=== PATIENT | female | born 1950 | race Caucasian/White ===

== ENCOUNTER 2019-02-20 10:45 | Inpatient (IN) ==
[2019-02-20] MEDS ORDERED: ASPIRIN PO ONE (11:23)
--- NOTE | 2019-02-20 11:28 | EKG Report ---
Test Performed on : 02/20/2019 10:47:23 AM Test Reason : CHEST PAIN Blood Pressure : / mmHG Vent. Rate : 069 BPM Atrial Rate : 069 BPM P-R Int : 162 ms QRS Dur : 114 ms QT Int : 416 ms P-R-T Axes : 034 -11 029 degrees QTc Int : 445 ms Normal sinus rhythm. Anteroseptal infarct , age undetermined Abnormal ECG No previous ECGs available Unconfirmed Result
[2019-02-20 11:33] LABS: BASO# 0.03 X1000 (0.0-0.2); BASO% 0.3 % (0.0-0.8); EOS% 2.1 % (0.0-10.0); HEMATOCRIT 39.4 % (37.0-47.0); HEMOGLOBIN 13.3 g/dL (12.0-16.0); IMM GRAN# 0.03 X1000 (0.0-0.04); IMM GRAN% 0.3 % (0.0-0.5); LYMPH# 2.46 X1000 (1.2-3.4); LYMPH% 26.2 % (20.5-51.1); MCH 27.7 PG (27-31); MCHC 33.8 g/dL (33-37); MCV 82.1 FL (81-99); MONO# 0.76 X1000 (0.11-0.59); MONO% 8.1 % (1.7-9.3); MPV 11.3 FL (7.4-10.4); NEUT# 5.91 X1000 (1.4-6.5); PLT 282 X1000 (130-400); RDW 14.1 % (11.5-14.5); WBC 9.39 X1000 (4.8-10.8)
[2019-02-20 11:40] LABS: INR 0.96; PROTIME 12.8 Seconds (11.0-16.0); PTT 26.6 Seconds (22.3-41.8)
[2019-02-20 11:51] LABS: AGAP 14; ALB/GLOB RATIO 2.4; ALBUMIN 4.8 g/dL (3.5-5.0); ALKALINE PHOSPHATASE 84 U/L (32-104); BUN 21 mg/dL (8-22); CALCIUM 9.4 mg/dL (8.8-10.2); CHLORIDE 105 mmol/L (98-107); CK PROFILE 51 U/L (24-173); COSMO 288; CREATININE 0.8 mg/dL (0.5-0.9); ESTIMATED GFR > 60; GLUCOSE 100 mg/dL (70-104); GOT 18 U/L (10-30); GPT 17 U/L (10-36); POTASSIUM 4.1 mmol/L (3.5-5.1); SODIUM 143 mmol/L (136-145); TCO2 24 mmol/L (25-35); TOTAL BILIRUBIN 0.35 mg/dL (0.20-1.00); TOTAL PROTEIN 6.8 g/dL (6.3-8.3)
--- NOTE | 2019-02-20 11:59 | Diag Imaging Result Doc PS360 ---
EXAM: CHEST-2 VIEWS 02/20/2019 HISTORY: cp TECHNIQUE: PA and lateral chest COMMENT: There is no evidence of acute cardiac or pulmonary disease. There are no previous studies. IMPRESSION: No acute disease. Electronically signed by Onur Osuna 02/20/2019 11:57 AM
--- NOTE | 2019-02-20 16:30 | PROVIDER DOCUMENTATION ---
This chart was entered by Dang Albarran Scribe, acting as scribe for Alexys Gu MD. HPI-Chest Pain - General Chief Complaint: Chest Pain Stated Complaint: CP - HEART PATIENT Time Seen by Provider: 02/20/19 11:32 Source: patient Allergies/Adverse Reactions: Patient Allergies Allergy/AdvReac Type Severity Reaction Status Date / Time Sulfa (Sulfonamide Allergy SHORTNESS Verified 02/20/19 11:31 Antibiotics) OF BREATH Home Medications: Home Medication List Medication Instructions Recorded Confirmed Last Taken Type Aspirin [Ecotrin] 81 mg PO QAM 02/20/19 02/20/19 02/20/19 History Fenofibrate [Lofibra] 160 mg PO DAILY 02/20/19 02/20/19 02/20/19 History Gabapentin 100 mg PO QPM 02/20/19 02/20/19 1 Day Ago History ~02/19/19 Lisinopril 10 mg PO QAM 02/20/19 02/20/19 02/20/19 History Metoprolol [Lopressor] 25 mg PO QPM 02/20/19 02/20/19 1 Day Ago History ~02/19/19 Multivitamin/Iron/Folic Acid 1 ea PO QAM 02/20/19 02/20/19 02/20/19 History [Centrum Adults Tablet] [place]-3 Fatty Acids [Fish Oil] 500 mg PO QAM 02/20/19 02/20/19 02/20/19 History Omeprazole [Prilosec] 40 mg PO QAM 02/20/19 02/20/19 02/20/19 History PRAVAstatin [Pravachol] 80 mg PO QHS 02/20/19 02/20/19 1 Day Ago History ~02/19/19 Temazepam [Restoril] 30 mg PO QHS 02/20/19 02/20/19 1 Day Ago History ~02/19/19 - History of Present Illness-CP Nature of Presenting Problem: 69yof presents to ED cc chest pressure, palpitations,weakness, lightheaded and SOB for last 2 days. 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 Pt reports she has had palpitations for 2yrs and had a cardiac workup for that but is unsure of dx. Pt reports she has family hx of similar symptoms with [place]. Pt denies N/V/D, chills, fever or edema. Pt is nontoxic in appearance. Pt has hx of HTN and DM. Location: reports: central Chest Pain Radiation: reports: no radiation Quality of Pain: reports: pressure Severity in ED: mild, moderate Onset/Duration: 2 days ago Timing: still present, intermittent Context/Activities at Onset: reports: light activity Modifying Factors: improves with: nothing Associated Symptoms: reports: fatigue, shortness of breath, weakness Similar Symptoms Previously?: Yes Recently Seen Here or By Another Healthcare Provider: No Review of Systems - Adult - REVIEW OF SYSTEMS - ADULT Constitutional: reports: see HPI, fatique. denies: chills, fever Eyes: reports: no symptoms reported Ears, Nose, Mouth & Throat: reports: no symptoms reported Cardiovascular: reports: see HPI, chest pain, palpitations Respiratory: reports: see HPI, shortness of breath. denies: wheezing Gastrointestinal: reports: see HPI. denies: diarrhea, nausea, vomiting Genitourinary: reports: no symptoms reported Musculoskeletal: reports: no symptoms reported Integumentary: reports: no symptoms reported Neurological: reports: see HPI, dizziness/vertigo Psychiatric: reports: no symptoms reported Endocrine: reports: no symptoms reported Hematologic/Lymphatic: reports: no symptoms reported Allergic/Immunologic: reports: no symptoms reported All Other Systems: Reviewed and Negative Past History - Adult - PAST MEDICAL HISTORY-ADULT Review of Records: reports: Nursing Assessment Review, Medications Reviewed, Social history reviewed & non-contributory. Major Childhood Illnesses: reports: denies history Cardiovascular: reports: denies history Respiratory: reports: denies history Gastrointestinal: reports: denies history Obstetrical/Gynecological: reports: denies history Genitourinary: reports: denies history Musculoskeletal: reports: denies history Neurological: reports: denies history Endocrine/Immune: reports: denies history Other Conditions: reports: denies history - IMMUNIZATION STATUS Childhood Immunizations: See Nurse Assessment Flu Vaccine: See Nurse Assessment - FAMILY HISTORY Family History: reviewed, not pertinent - SOCIAL HISTORY Smoking: denies Physical Exam-General - PHYSICAL EXAM-ADULT Initial Vital Signs Reviewed: Yes - CONSTITUTIONAL General Appearance: appears well, alert, no apparent distress. negative: anxious, combative - EYES Eyes: PERRL/EOMI, pink conjunctivae. negative: photophobia - HEAD, EARS, NOSE, MOUTH & THROAT HENMT: normocephalic/atraumatic, moist mucous membranes. negative: angioedema - RESPIRATORY Respiratory: chest non-tender, lungs clear, normal breath sounds. negative: stridor, wheezing - CARDIOVASCULAR Cardiovascular: normal peripheral pulses, regular rate, rhythm, no edema. negative: bradycardia, tachycardia - GASTROINTESTINAL (ABDOMEN) Abdominal Exam: soft. negative: rebound, tenderness - MUSCULOSKELETAL Back Exam: normal inspection, no CVA tenderness, no vertebral tenderness Extremity: normal inspection, normal capillary refill. negative: deformity - SKIN Integumentary: normal color. negative: diaphoresis, ecchymosis - PSYCHIATRIC Psych/Mental Status: normal mood/affect, oriented x 3. negative: anxious, disheveled - HEART Score HEART Score: History: Slightly Suspicious HEART Score: ECG: Non-Specific Repolarization Disturbance/LBBB/PM HEART Score: Age: > or = 65 Years HEART Score: Risk Factors for Atherosclerotic Disease: 1 or 2 Risk Factors HEART Score: Troponin: < or = Normal Limit Total HEART Score:: 4 Progress - PLAN OF CARE/RESULTS Progress/Plan/Lab Results: Vital Signs - 8 hr 02/20/19 10:54 02/20/19 11:12 02/20/19 12:02 Temperature 98.3 F Pulse Rate 74 81 62 Respiratory Rate 18 18 15 Blood Pressure 137/84 157/84 143/66 O2 Sat by Pulse Oximetry 95 96 95 02/20/19 13:02 Temperature Pulse Rate 62 Respiratory Rate 15 Blood Pressure 139/79 O2 Sat by Pulse Oximetry 97 Laboratory Results - last 24 hr 02/20/19 02/20/19 02/20/19 11:00 11:00 11:00 WBC 9.39 RBC 4.80 Hgb 13.3 Hct 39.4 MCV 82.1 MCH 27.7 MCHC 33.8 RDW Std Deviation 14.1 Plt Count 282 MPV 11.3 H Immature Gran % (Auto) 0.3 Neut % (Auto) 63.0 Lymph % (Auto) 26.2 Wirt % (Auto) 8.1 Eos % (Auto) 2.1 Baso % (Auto) 0.3 Immature Gran # (Auto) 0.03 Neut # (Auto) 5.91 Lymph # (Auto) 2.46 Wirt # (Auto) 0.76 H Eos # (Auto) 0.20 Baso # (Auto) 0.03 PT INR PTT (Actin FS) Sodium 143 Potassium 4.1 Chloride 105 Carbon Dioxide 24 L Anion Gap 14 BUN 21 Creatinine 0.8 Estimated GFR/1.73 m2 > 60 BUN/Creatinine Ratio 26 Glucose 100 Calculated Osmolality 288 Calcium 9.4 Total Bilirubin 0.35 AST 18 ALT 17 Alkaline Phosphatase 84 Creatine Kinase 51 Troponin T Fnn-D-[id number] Pept 158 Total Protein 6.8 Albumin 4.8 Globulin 2.0 Albumin/Globulin Ratio 2.4 02/20/19 02/20/19 02/20/19 11:00 11:00 13:05 WBC RBC Hgb Hct MCV MCH MCHC RDW Std Deviation Plt Count MPV Immature Gran % (Auto) Neut % (Auto) Lymph % (Auto) Wirt % (Auto) Eos % (Auto) Baso % (Auto) Immature Gran # (Auto) Neut # (Auto) Lymph # (Auto) Wirt # (Auto) Eos # (Auto) Baso # (Auto) PT 12.8 INR 0.96 PTT (Actin FS) 26.6 Sodium Potassium Chloride Carbon Dioxide Anion Gap BUN Creatinine Estimated GFR/1.73 m2 BUN/Creatinine Ratio Glucose Calculated Osmolality Calcium Total Bilirubin AST ALT Alkaline Phosphatase Creatine Kinase Troponin T < 0.010 < 0.010 [id number]-N-Jzrovbfpqvr Pept Total Protein Albumin Globulin Albumin/Globulin Ratio Orders Category Date Time Status Cardiac Monitoring DIRECTED Care 02/20/19 11:23 Active Oxygen Therapy- ED Nursing DIRECTED Care 02/20/19 11:23 Active Saline Loc NOW Care 02/20/19 11:23 Active CHEST-2 VIEWS [RAD] Stat Exams 02/20/19 11:23 Completed CBC WITH ELECTRONIC DIFF [HEME] Stat Lab 02/20/19 11:00 Completed CK PROFILE [SP CHEM] Stat Lab 02/20/19 11:00 Completed COMPREHENSIVE METABOLIC PANEL [CHEM] Stat Lab 02/20/19 11:00 Completed PRO B-NATRIURETIC PEPTIDE Stat Lab 02/20/19 11:00 Completed PROTIME WITH INR [COAG] Stat Lab 02/20/19 11:00 Completed PTT [COAG] Stat Lab 02/20/19 11:00 Completed TROPONIN T Stat Lab 02/20/19 11:00 Completed TROPONIN T Stat Lab 02/20/19 13:05 Completed Aspirin Med 02/20/19 11:23 Discontinued 325 mg PO NOW ONE CP/SOB/Palp >45 yrs of Age Stat Oth 02/20/19 11:23 Ordered EKG [EKG] Stat Ther 02/20/19 11:00 Draft Result Diagrams: 02/20/19 11:00 02/20/19 11:00 - EKG 1 Time of EKG reading by physician:: 11:00 EKG Read and Signed by:: Alexys Gu EKG Interpretation (*Must complete 3 of following elements*): Abnormal (anteroseptal infarct) Rate: 69 Rhythm: nsr [place]: normal [place] Interval: normal - XRAY 1 XRAY: Bilateral XRAY Study: Chest Impression: See EMR Report (IMPRESSION: No acute disease. Electronically signed by Onur Osuna 02/20/2019 11:57 AM) - CONSULTS/PCP/HOSPITALIST Notification #1 *Consult/PCP/Hospitalist*: Dr. Baker/Rail Setter Time Discussed: 15:18 Consult Disposition: Admit (advised to have hospitalist admit pt and consult him) #2 Consult: Dr. Rea Time Discussed: 15:29 Consult Disposition: Admit (accepted pt) Departure - Departure Date of Disposition Decision: 02/20/19 Time of Disposition Decision: 15:20 DIAGNOSIS: Palpitations, Weakness Chest pain Qualifiers: Chest pain type: unspecified Qualified Code(s): R07.9 - Chest pain, unspecified Disposition: ADMITTED INPATIENT 09 Certified Medical Emergency: Emergent Condition: Stable Additional Freetext Instructions: ED Follow Up Instructions: You have been treated by a care provider in the Emergency Department. These instructions are being provided to you so you can have an understanding of how to care for yourself upon discharge. Upon discharge from the Emergency Department, you are responsible for making arrangements for follow-up care by a physician of your choice. Take all prescribed medications as directed. Return to the Emergency Department immediately for any new or worsening symptoms. You may call the Physician Referral phone number at [phone] to obtain a list of Physicians who are taking new patients. Referrals and Follow-Ups: Ck Baker MD [Primary Care Provider] - - Critical Care Note This patient required my direct & personal management of CC.: No Attestation - Physician/ YULI Attestation Patient care was provided by Advanced Practice Provider:: No The physician spent face to face time with patient:: Yes Advanced Practice Provider documentation review:: Supervising physician onsite and consulted in the evaluation and care of this patient. The physician did have a face to face encounter with the patient. This chart was documented by the indicated scribe, (Dang Albarran Scribe) and accurately reflects the services I performed and decisions made by me, Alexys Gu MD, as attested by the provider's signature.
[2019-02-20] MEDS ORDERED: TYLENOL PO PRN (16:35)
[2019-02-20] MEDS ORDERED: ZOFRAN IV PRN (16:35)
[2019-02-20] MEDS ORDERED: NITROGLYCERIN SL PRN (16:35)
[2019-02-20] MEDS ORDERED: LOVENOX SUBQ SCH (16:45)
--- NOTE | 2019-02-20 18:57 | Diag Imaging Result Doc PS360 ---
EXAM: CT THORAX W/O CONTRAST 02/20/2019 HISTORY: chest pain TECHNIQUE: This exam was performed using automated exposure control, adjustment of mA or kV according to patient size, and/or use of iterative reconstruction technique. COMMENT: There are nodules in the thyroid lobes bilaterally. There are no previous studies. There are some partially calcified precarinal nodes. There is no evidence of significant adenopathy. There is dense calcification in the left anterior descending artery. No abnormal fluid collections are present. There is no evidence of acute disease in the visualized portion of the abdomen. There is atelectasis versus fibrosis in both costophrenic sulci and along the lower portion of the left major fissure. No evidence of acute pulmonary consolidation is present. There is a calcified granuloma in the right upper lobe. IMPRESSION: Coronary atherosclerosis. Atelectasis versus fibrosis, otherwise no evidence of acute pulmonary disease. Electronically signed by Onur Osuna 02/20/2019 6:54 PM
--- NOTE | 2019-02-20 19:24 | HISTORY AND PHYSICAL ---
PRIMARY CARE PHYSICIAN: Dr. Dipak Duque. CARDIOLOGISTS: Dr. Ck Baker. CHIEF COMPLAINT: Chest pain. HISTORY OF PRESENT ILLNESS: Ms Carlin is a 69-year-old female. She states that she started having weakness, lightheadedness, tiredness and some chest discomfort. This started a couple of weeks ago. She explains her chest discomfort as midsternum. It is a heavy to dull pain that is constant. It seems to hurt every time her heart beats. She is having some palpitations. She states that she is not short of breath. She states that this happened a couple weeks ago, it subsequently stopped, a couple days later it came back, it persisted for a couple days, it then went away and then it started again yesterday and when she went to bed last night she does not know if it hurt when she went to sleep because she had a sleeping pill and she woke up this morning she was still having the pain. Upon inspection her chest appears to be normal. When you palpate the chest it is not tender to the touch. The pain seems to be midsternal around the left breast area. She states it is constant all the time but it sometimes is sharp. It does not hurt worse when she takes a deep breath and she is not short of breath but every time her heart beats it seems to hurt. The patient while I was in the room was complaining of some palpitations. She stated this morning she had some chills. She denies any fever. She denies any cough or congestion. Denies any edema to her lower extremities. Denies any nausea or vomiting. The patient does have a high past medical history of hypertension, hyperlipidemia and GERD. She does have a family history that is significant for heart disease, her father and her grandmother both at a very young age from heart attacks. Chest x-ray in the ER shows no acute disease. EKG in the ER shows normal sinus rhythm, 69 beats per minute. Laboratory findings in the ER show a negative troponin of less than 0.01. PAST MEDICAL HISTORY: Hypertension, hyperlipidemia, GERD. PAST SURGICAL HISTORY: Hysterectomy, perforated ulcer, cholecystectomy, arthroscopy of bilateral knees, several skin cancer removals, she had bilateral surgery done to her thumb. FAMILY HISTORY: Significant for heart disease on her father's side. Her father at the age of 41. Her grandmother very young age from heart disease. SOCIAL HISTORY: The patient is . She lives in the [place] area with her . She has 3 grown children and multiple grandchildren. She is retired. She was a hairdresser. She denies any smoking, alcohol or drug abuse. ALLERGIES: Sulfa drugs. MEDICATIONS: 1. Aspirin 81 mg p.o. q.a.m. 2. Fenofibrate 160 mg p.o. daily. 3. Gabapentin 900 mg p.o. nightly. 4. Lisinopril 10 mg p.o. q.a.m. 5. Metoprolol 25 mg p.o. nightly. 6. Multivitamin with iron 1 tablet p.o. every morning. 7. Prilosec 40 mg p.o. every morning. 8. Pravastatin 80 mg p.o. at bedtime. 9. Restoril 30 mg p.o. at bedtime. 10. Fish oil 500 mg p.o. q.a.m. LABS AND DIAGNOSTICS: White blood cell count 9.39, red blood cell count 4.80, hemoglobin 13.3, hematocrit 39.44, platelet count 282,000. PT 12.8, INR 0.96, PT is 26.6. Sodium 143, potassium 4.1, chloride 105, carbon dioxide 24, anion gap 14, BUN is 21, creatinine is 0.8, GFR is greater than 60, glucose is 100, calcium is 9.4, bilirubin is 0.35, AST is 18, ALT 17, alkaline phosphatase 84, creatine kinase is 51, troponin is less than 0.01. ProBNP is 158. Chest x-ray shows no acute disease. EKG shows normal sinus rhythm with a rate of 69 beats per minute. REVIEW OF SYSTEMS: A 10 point review of systems has been obtained. All are negative except what is stated above in HPI. PHYSICAL EXAMINATION: VITAL SIGNS: Temperature 98 degrees, pulse rate 72, respiratory rate 14, blood pressure 148/68, O2 saturation 98% on room air, height 5 feet 5, weight 218 pounds. GENERAL: This is a 69-year-old female. She is sitting up in ER stretcher. She is well nourished, well developed. She is in no acute distress at present time. HEENT: Atraumatic, normocephalic. Pupils equal, round, reactive to light. Sclerae anicteric. Mucous membranes are moist. NECK: Supple. No lymphadenopathy. Trachea is midline. No JVD. No thyromegaly. No bruits. CARDIOVASCULAR: Regular rate and rhythm. No murmurs, gallops, or rubs appreciated. RESPIRATORY: Lung sounds are clear with equal chest excursion. Respirations are nonlabored with no accessory muscle usage. ABDOMEN: Soft, nontender, nondistended. Bowel sounds are present x4. NEUROLOGIC: Cranial nerves 2-12 are intact. Patient is awake, alert, oriented, able to follow all commands appropriately. MUSCULOSKELETAL: Full distal strength noted. No abnormalities. Gait no deformities. EXTREMITIES: No clubbing, no cyanosis, no edema. DP and PT pulses are present and palpable. SKIN: Warm, dry, intact. No rashes, no bruises, good turgor. No diaphoresis. ASSESSMENT AND PLAN: 1. Chest pain, rule out acute coronary syndrome. I am going to admit this patient to the medical floor. She is already had a couple of troponin that come back negative. I am going to continue to check her CK and troponin levels and repeat an EKG in the morning. I have consulted Dr. Baker, her linux server administrator. We are going to order echocardiogram on her and I have ordered a stress test for her for Saturday. 2. Hypertension. Patient is on home medications for her hypertension. I have reordered these medications. 3. Hyperlipidemia. I have ordered her home medications for hyperlipidemia. 4. Deep venous thrombosis prophylaxis. I will place her on Lovenox for prophylaxis. She is on aspirin at home. I continue this. 5. Gastrointestinal prophylaxis. She is on Prilosec at home. I will continue this. We will admit this patient to medical floor. I have ordered to continue to check CK and troponin levels. I have ordered an EKG for in the morning, placed her on sliver lap machine tender, I have ordered a echocardiogram and consulted Dr. Baker for Cardiology. I have ordered a stress test for Saturday. We are going repeat all labs in the morning. I have ordered a healthy heart diet. I have reordered her home medications. All other further treatment pending hospital course and lab data. Dictated by KAYODE Jackson for Neftali Wu MD Addendum: Patient seen and examined by myself. Agree with CHEESE WEIGHER note. It reflects my assessment and plan. Patient is being admitted to hospital for chest pain. Work up under progress. Will trend troponins, will order an echocardiogram and will consult Cardiology. cc: Ck Baker MD MTDD
[2019-02-20] MEDS ORDERED: PRAVACHOL PO SCH (21:00)
[2019-02-20] MEDS ORDERED: RESTORIL PO SCH (21:00)
[2019-02-20] MEDS ORDERED: LOPRESSOR PO SCH (21:00)
[2019-02-20] MEDS ORDERED: NEURONTIN PO SCH (21:00)
--- NOTE | 2019-02-21 06:43 | EKG Report ---
Test Performed on : 02/21/2019 06:12:11 AM Test Reason : chest pain Blood Pressure : / mmHG Vent. Rate : 067 BPM Atrial Rate : 067 BPM P-R Int : 196 ms QRS Dur : 110 ms QT Int : 464 ms P-R-T Axes : 066 -13 042 degrees QTc Int : 490 ms Normal sinus rhythm. Anteroseptal infarct (cited on or before 20-FEB-2019) Abnormal ECG When compared with ECG of 20-FEB-2019 10:47, (Unconfirmed) QT has lengthened Confirmed by Cathryn RAY, Felipe Gonzales ([id number]) on 02/21/2019 12:12:10 PM
[2019-02-21 07:29] VITALS: BP 129/55
--- NOTE | 2019-02-21 07:31 | Diag Imaging Result Doc PS360 ---
EXAM: CHEST-PORTABLE 02/21/2019 HISTORY: Chest Pain TECHNIQUE: AP portable at 0604 COMMENT: There is no evidence of acute cardiac or pulmonary disease. The inspiration is suboptimal. Compared to 02/20/2019 considering the degree of inspiration there has been no significant change. IMPRESSION: Stable chest. Electronically signed by Onur Osuna 02/21/2019 7:28 AM
[2019-02-21 08:18] LABS: BASO# 0.03 X1000 (0.0-0.2); BASO% 0.5 % (0.0-0.8); EOS# 0.22 X1000 (0.0-0.7); EOS% 3.5 % (0.0-10.0); HEMATOCRIT 39.3 % (37.0-47.0); HEMOGLOBIN 13.1 g/dL (12.0-16.0); LYMPH# 2.11 X1000 (1.2-3.4); MCH 27.9 PG (27-31); MCHC 33.3 g/dL (33-37); MCV 83.6 FL (81-99); MONO% 9.7 % (1.7-9.3); MPV 11.2 FL (7.4-10.4); NEUT# 3.24 X1000 (1.4-6.5); NEUT% 52.3 % (42.2-75.2); PLT 277 X1000 (130-400); RDW 14.4 % (11.5-14.5)
[2019-02-21 08:47] LABS: AGAP 12; BUN 19 mg/dL (8-22); CALCIUM 8.8 mg/dL (8.8-10.2); CHLORIDE 104 mmol/L (98-107); MAGNESIUM 2.1 mg/dL (1.5-2.7); SODIUM 141 mmol/L (136-145); TCO2 25 mmol/L (25-35); TOTAL BILIRUBIN 0.38 mg/dL (0.20-1.00); TOTAL PROTEIN 6.9 g/dL (6.3-8.3)
[2019-02-21] MEDS ORDERED: PRINIVIL PO SCH (09:00)
[2019-02-21] MEDS ORDERED: PRILOSEC PO SCH (09:00)
[2019-02-21] MEDS ORDERED: LOFIBRA PO SCH (09:00)
[2019-02-21] MEDS ORDERED: CENTRUM TABLET PO SCH (09:00)
[2019-02-21] MEDS ORDERED: FISH OIL CONCENTRATE PO SCH (09:00)
[2019-02-21] MEDS ORDERED: ASPIRIN EC PO SCH (09:00)
[2019-02-21 09:10] LABS: TSH 1.26 uIUmL (0.27-4.20)
[2019-02-21 09:14] LABS: ALBUMIN 4.3 g/dL (3.5-5.0); ALKALINE PHOSPHATASE 73 U/L (32-104); CHOLESTEROL 149 mg/dL (0-200); CREATININE 0.7 mg/dL (0.5-0.9); ESTIMATED GFR > 60; GLUCOSE 94 mg/dL (70-104); GOT 19 U/L (10-30); GPT 15 U/L (10-36); HDL 48 mg/dL (45-65); LDL 85 mg/dL; TRIGLYCERIDES 82 mg/dL (35-135); VLDL 16 mg/dL
[2019-02-21 09:19] LABS: COSMO 283
[2019-02-21 09:20] LABS: ALB/GLOB RATIO 1.7
--- NOTE | 2019-02-21 11:06 | PROGRESS NOTE ---
DATE: 02/21/2019 SUBJECTIVE: Patient reports feeling fine. Denies any chest pain. No nausea or vomiting. OBJECTIVE: Vital Signs: Temperature 98.0 degrees, heart rate 63, respiratory rate 20, blood pressure 129/55, O2 saturation 95% on room air. General examination: This is a 69-year-old female, lying in bed in no acute distress. Cardiovascular Exam: S1, S2 heard. No murmurs, gallops, or rubs. Regular rate and rhythm. Respiratory Exam: Clear bilaterally to auscultation. No work of breathing or using accessory muscles. Abdomen: Soft, nontender to palpation. Bowel sounds present. No organomegaly. Extremities: No clubbing, cyanosis, or edema. Peripheral pulses present in both legs. Neurological Exam: Patient alert, oriented x3. Moves 4 extremities. LABORATORY DATA: Reviewed and three sets of troponins have been checked and those are normal. ASSESSMENT AND PLAN: 1. Chest pain. Chest pain is gone. We have checked troponins 3 times and those are negative. We have ordered echocardiogram that has been done, but has not been read yet. Cardiology consultation is pending. There is a Lexiscan that we have ordered since admission for this chest pain. At this point, we will continue to monitor this patient closely. 2. Hypertension. Blood pressure is under control. We will continue with same management. 3. Hyperlipidemia. We will continue home medication. We have checked lipid panel here and that is normal. 4. Gastrointestinal prophylaxis with Prilosec. 5. Disposition: We will monitor this patient closely. We will follow recommendations from Cardiology. cc: Neftali Wu MD
--- NOTE | 2019-02-21 11:21 | DISCHARGE SUMMARY ---
ADMISSION DATE: 02/20/2019 DISCHARGE DATE: 02/21/2019 DISCHARGE DIAGNOSES: 1. Chest pain. 2. Acute coronary syndrome, ruled out. 3. Hypertension. 4. Hyperlipidemia. 5. Gastroesophageal reflux disease. CONSULTATION: Dr. Baker from Cardiology. PROCEDURES: 1. Chest x-ray done on admission showed no acute disease. 2. Chest CT showed coronary arteriosclerosis with atelectasis versus fibrosis, but otherwise no evidence of acute pulmonary disease. 3. Echocardiogram is pending at time of my dictation. HOSPITAL COURSE: This is a 69-year-old female with past medical history of hypertension, hyperlipidemia, and GERD, who presented to the emergency department complaining of chest pressure, chest pain that has been going on for a couple weeks. Basically, she was admitted for this condition for chest pain to rule out acute coronary syndrome. Three sets of troponin has been drawn and those are normal. Echocardiogram is still pending at the time of my dictation. As per Dr. Baker from Cardiology, who has evaluated this patient, she is good to go today on the eRep[employer] that we planning to do inpatient that can be scheduled outpatient. Patient is supposed to call the office on Saturday to get set up for her. At this point, patient is being released in stable condition, cleared by Cardiology. DISCHARGE PHYSICAL EXAMINATION: Vital Signs: Temperature 98.0 degrees, heart rate 63, respiratory rate 20, blood pressure 129/55, O2 saturation 100% on room air. General examination: This is a 69-year-old female, lying in bed in no acute distress. Cardiovascular exam: S1, S2 heard. No murmurs, gallops, or rubs. Regular rate and rhythm. Respiratory exam: Clear bilaterally to auscultation. No work of breathing or using accessory muscles. Abdomen: Soft, nontender to palpation. Bowel sounds present. No organomegaly. Extremities: No clubbing, cyanosis, or edema. Peripheral pulses present in both legs. Neurological exam: The patient is alert and oriented x3. Moves 4 extremities. DISCHARGE DISPOSITION: Home to self-care. FOLLOW-UP: The [facility] get [facility] Lexiscan stress test done, and follow up with Dr. Baker in the office as well. RECENT MEDICATIONS: We are not going to make any changes to these current medications. cc: Neftali Wu MD
--- NOTE | 2019-02-21 12:21 | CONSULTATION ---
DATE OF CONSULTATION: 02/21/2019 IMPRESSION: 1. Chest pain, predominantly atypical for myocardial ischemia. Electrocardiogram without acute ischemic change, and serial troponins normal. 2. Associated palpitations. Patient has continued in sinus rhythm. 3. Hypertension. 4. Hyperlipidemia. 5. Gastroesophageal reflux. RECOMMENDATIONS: Given lack of objective evidence for myocardial ischemia and atypical nature of patient's chest symptoms, it is very reasonable for her to be discharged to have outpatient evaluation with stress myocardial perfusion study. I discussed this with her at length and she has been very much in agreement, and prefers to go home to have stress test as an outpatient. HISTORY: This 69-year-old white female with past history of hypertension and hyperlipidemia was admitted through the emergency room yesterday with chest discomfort. She has been under a fair amount of stress over the last few weeks. 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 For a few days in the past 2 weeks, she has had some pretty much constant dull chest discomfort with some associated mild palpitations. She relates some intermittent sharp discomfort as well. She can identify no precipitating or relieving factors. Discomfort is not pleuritic nor positional. There is no exertional component to her symptoms. Symptoms seem to improve, but then yesterday morning reemerged. Two nights ago, chest symptoms re-emerged similar to previous. Discomfort was rather persistent for hours at a time. She identified no precipitating or relieving factors, and symptoms did not seem to be affected by diet or exercise. She came to the emergency room with symptoms and concern about coronary disease. She does have a family history of early coronary disease on her father's side. Symptoms have resolved. She is admitted for observation and further evaluation in light of her coronary risk factors. She has not any recurrence of discomfort. She prefers to go home and have outpatient evaluation if reasonable from a medical standpoint. PAST MEDICAL HISTORY: 1. Hypertension. 2. Hyperlipidemia. 3. Gastroesophageal reflux disease. PAST SURGICAL HISTORY: 1. Hysterectomy. 2. Surgery for perforated ulcer. 3. Cholecystectomy. 4. Left knee arthroscopic procedure. 5. Right knee arthroscopic procedure. 6. Left thumb surgery. 7. Right thumb surgery. 8. Removal of several skin cancers. ALLERGIES: She is allergic or intolerant to sulfa drugs. MEDICATIONS PRIOR TO ADMISSION: As listed. SOCIAL HISTORY: She is . 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 She has never smoked. She does not use alcohol. FAMILY HISTORY: Positive for early coronary disease on her father's side. Her father had suffered a myocardial infarction in his early 40s. He was a smoker. REVIEW OF SYSTEMS: Pulmonary: Noncontributory beyond history of present illness. Gastrointestinal: Noncontributory beyond history of present illness. Constitutional: Noncontributory beyond history present illness. Constitutional: Noncontributory beyond history present illness. Remainder of review of systems negative/noncontributory beyond history present illness with 14 total systems reviewed. PHYSICAL EXAMINATION: General: Reveals a pleasant, older white female in no distress on room air. Vital Signs: Blood pressure. 129/55, heart rate 63, oxygen saturation 95% on room air. HEENT exam: Extraocular movements appear intact. Mucous membranes are moist. Neck: Supple without jugular venous distention. There are no carotid bruits. Chest: Clear to auscultation. Cardiac Exam: Reveals a regular rate and rhythm without appreciable murmur or gallop. Abdomen: Soft. Bowel sounds are normal. Extremities: Without edema. Neurologic: Exam reveals her to be alert and fully oriented. Speech is fluent. She moves all 4 extremities equally well. Skin: Warm and dry. Psychiatric exam: Reveals mood to be appropriate. PERTINENT DATA: Twelve lead EKG demonstrates sinus rhythm and cannot rule out anteroseptal infarct of undetermined age. LABORATORY DATA: Includes a white blood cell count of 6.2, hematocrit 39.3, hemoglobin 13.1, platelet count 277. Sodium 141, potassium 4.0, chloride 104, carbon dioxide 25. BUN 19, creatinine 0.7, glucose 94. Initial troponin less than 0.01. Followup troponin less than 0.01 and less than 0.01. cc: Ck Baker MD
--- NOTE | 2019-02-21 22:05 | ECHO REPORT ---
ORDER DATE: 02/20/2019 MEASUREMENTS: Septal thickness 0.9, left ventricular internal diameter diastole 4.8, posterior wall thickness 0.7, left ventricular internal diameter in systole 3.3, aortic root 3.3, left atrium 3.7. SUMMARY: 1. Fair quality study. 2. Aortic valve without evidence of structural abnormality and opens adequately on 2-dimensional images. Peak gradient across aortic valve is less than 10 mmHg. Mitral, tricuspid and pulmonic valves are without evidence of structural abnormality. There is trace tricuspid regurgitation. Estimated systolic PA pressure by Doppler is 25 to 30 mmHg. Aortic root is normal in size. 3. Normal left ventricular dimensions demonstrated. Estimated left ejection fraction appears to be at least 60%. No regional wall motion abnormalities are evident. Doppler suggests grade 1 left ventricular diastolic dysfunction. Left atrium, right atrium, right ventricle are normal in size with grossly preserved right ventricular systolic function. 4. No pericardial effusion. 5. Inferior vena cava not well demonstrated. cc: Ck Baker MD
== END 2019-02-21 11:12 | disposition home or self-care (01) | DRG 313 ==
LOC: ED 10:45 → 3N 16:55
PROVIDERS: ATTEND Internal Medicine